=== PATIENT | male | born 1975 | race Caucasian/White ===

== ENCOUNTER 2016-11-04 09:42 | Inpatient (IN) | payer OTHER ==
[2016-11-04] VITALS (11 sets, daily range): BP systolic 83–127; BP diastolic 55–85
[~2016-11-04] VITALS: Ht 162.6 cm; Wt 63.6 kg
[2016-11-04 10:15] LABS: HEMATOCRIT 30.4 % (38.0-50.0); MCH 30.2 PG (29.0-34.0); MCHC 29.9 G/DL (30.0-36.0); MEAN PLAT.VOLUME 10.4 uM^3 (9.0-12.4); PLATELET COUNT 156 K/uL (156-360); RBC DIS.WIDTH-CV 13.2 % (11.8-14.6); RBC DIS.WIDTH-SD 49.1 % (39-53); RED BLOOD COUNT 3.01 M/uL (4.00-5.50); WHITE BLOOD COUNT 11.5 K/uL (4.1-10.2)
[2016-11-04 10:23] LABS: BASE EXCESS -10.8 mEq/L (-3 to +3); BICARBONATE 18.9 mEq/L (22-26); CARBOXY HGB 5.8 % (0-5); METHEMOGLOBIN 0.8 % (0-1.5); PCO2 58 mm Hg (35-45); PO2 104 mm Hg (80-100)
[2016-11-04 10:24] LABS: COMMENTS - BLOOD GASES A+C+; DEVICE 980; FI02 50 %; MECHANICAL RATE 16 resp/min; MODE AC; PEEP 5 CM/H20; SITE RR; TIDAL VOLUME 400 ML; TOTAL RESP RATE 16 resp/min; pH 7.12 (7.35-7.45)
[2016-11-04 10:24] LABS: CHLORIDE 125 mEq/L (99-109); POTASSIUM 2.5 mEq/L (3.7-5.4); SODIUM 148 mEq/L (136-147)
[2016-11-04 10:26] LABS: GLUCOSE 79 mg/dL (70-99)
[2016-11-04 10:27] LABS: ANION GAP 11 MEQ/L (2-14)
[2016-11-04 10:28] LABS: TOTAL BILIRUBIN 0.2 mg/dL (0.0-1.0)
[2016-11-04 10:29] LABS: SERUM ETHYL ALCOHOL < 10 mg/dL
[2016-11-04 10:30] LABS: GFR ESTIMATE (CALCULATED) > 59 mL/min/
[2016-11-04 10:31] LABS: ALKALINE PHOSPHATASE 55 IU/L (3-129)
[2016-11-04 10:32] LABS: UREA NITROGEN (BUN) 12 mg/dL (9-23)
[2016-11-04 10:33] LABS: SALICYLATE < 5.0 MG/DL (15-30)
[2016-11-04 10:34] LABS: TROP-I INTERPRETATION NEGATIVE; TROPONIN-I 0.07 ng/mL (0.0-0.30)
[2016-11-04 11:00] LABS: ANISOCYTOSIS 1+; BAND NEUTROPHILS 5.3 % (0-8.0); BASOPHILS 0.9 %; EOSINOPHIL ABS CT 0; INSTRUMENT ABS NEUTROPHIL CT 9.6 K/uL; LYMPHOCYTES 6.2 % (15.0-45.0); MACROCYTES 1+; METAMYELOCYTES 3.5 %; MICROCYTOSIS 1+; MYELOCYTES 1.8 %; PLAT.SUFFICIENCY ADEQUATE; POIKILOCYTOSIS 1+; SEG.NEUTROPHILS 81.4 % (46.0-76.0)
[2016-11-04 11:09] LABS: AMPHETAMINE NEGATIVE (500 ng/mL); BENZODIAZEPINES NEGATIVE (150 ng/mL); COCAINE NEGATIVE (150 ng/mL); METHADONE PRESUMPTIVE POSITIVE (200 ng/mL); METHAMPHETAMINE NEGATIVE (500 ng/mL); OPIATES (MORPHINE) NEGATIVE (100 ng/mL); PHENCYCLIDINE NEGATIVE (25 ng/mL); THC CANNABINOIDS PRESUMPTIVE POSITIVE (50 ng/mL); TRICYCLIC ANTIDEPRESSANTS NEGATIVE (300 ng/mL)
[2016-11-04 11:10] LABS: ADD MEDTOX COMMENT Y; BARBITURATES NEGATIVE (200 ng/mL); INTERNAL CONTROLS VALID? YES; OXYCODONE NEGATIVE (100 ng/mL); PROPOXYPHENE NEGATIVE (300 ng/mL)
[2016-11-04 14:24] LABS: BASE EXCESS -4.5 mEq/L (-3 to +3); BICARBONATE 21.7 mEq/L (22-26); CARBOXY HGB 2.5 % (0-5); COMMENTS - BLOOD GASES A+C+; DEVICE 980; PCO2 43 mm Hg (35-45); PO2 141 mm Hg (80-100); SITE RR; pH 7.31 (7.35-7.45)
[2016-11-04 14:25] LABS: FI02 50 %; MECHANICAL RATE 20 resp/min; MODE A/C; PEEP 5 CM/H20; TIDAL VOLUME 400 ML; TOTAL RESP RATE 20 resp/min
[2016-11-04 14:58] LABS: METH RESISTANT S AUREUS PCR NEGATIVE (NEGATIVE)
[2016-11-04 15:02] LABS: PROBE CHECK PASS; SPECIMEN PROCESSING CONTROL PASS
[2016-11-04 17:19] LABS: ALKALINE PHOSPHATASE 100 IU/L (3-129); ANION GAP 9 MEQ/L (2-14); CHLORIDE 106 MEQ/L (99-109); DIRECT BILIRUBIN 0.5 mg/dL (0.0-0.3); GFR ESTIMATE (CALCULATED) > 59 mL/min/; MAGNESIUM 1.5 mg/dl (1.3-2.7); SAMPLE HEMOLYSIS CHECK 0; SAMPLE ICTERIC CHECK 0; SAMPLE LIPEMIA CHECK 0; TOTAL BILIRUBIN 1.1 MG/DL (0.0-1.0); UREA NITROGEN (BUN) 20 mg/dL (9-23)
[2016-11-04 17:21] LABS: GLUCOSE 125 mg/dL (70-99); SODIUM 137 MEQ/L (136-147)
[2016-11-04 17:22] LABS: POTASSIUM 6.4 MEQ/L (3.7-5.4)
[2016-11-04 19:16] LABS: FERRITIN 2186 NG/ML (22-322)
[2016-11-04 19:24] LABS: IRON 75 MCG/DL (35-150)
[2016-11-04 22:03] LABS: ANION GAP 9 MEQ/L (2-14); CHLORIDE 104 MEQ/L (99-109); GFR ESTIMATE (CALCULATED) > 59 mL/min/; GLUCOSE 116 mg/dL (70-99); SAMPLE HEMOLYSIS CHECK 0; SAMPLE ICTERIC CHECK 0; SAMPLE LIPEMIA CHECK 0; SODIUM 138 MEQ/L (136-147); UREA NITROGEN (BUN) 19 mg/dL (9-23)
[2016-11-04 22:05] LABS: POTASSIUM 4.4 MEQ/L (3.7-5.4)
[2016-11-04 22:43] LABS: MAGNESIUM 2.4 mg/dl (1.3-2.7)
[2016-11-05] VITALS (20 sets, daily range): BP systolic 87–142; BP diastolic 43–90
[2016-11-05 02:04] LABS: ADD MIUA? YES; BILIRUBIN NEGATIVE; BLOOD MODERATE; COLOR YELLOW ((YELLOW)); GLUCOSE (STRIP) NEGATIVE; KETONES NEGATIVE; LEUKOCYTES NEGATIVE; NITRITE NEGATIVE; PROTEIN (STRIP) NEGATIVE; SPECIFIC GRAVITY 1.023 (1.000-1.030); UROBILINOGEN 0.2 MG/DL (0.2-1.0)
[2016-11-05 02:24] LABS: WHITE BLOOD CELLS 0-5 /HPF (0-5)
[2016-11-05 02:25] LABS: EPITHELIAL CELLS NONE SEEN /HPF; MUCUS NONE SEEN /LPF
[2016-11-05 02:26] LABS: AMORPHOUS URATES CRYSTALS 1+; BACTERIA 3+ /HPF; CASTS NONE SEEN /LPF; CRYSTALS PRESENT; URIC ACID CRYSTALS 3+ /HPF
[2016-11-05 04:51] LABS: EOSINOPHIL (%) 0.1 % (0-5); HEMATOCRIT 35.2 % (38.0-50.0); IMMATURE GRANULOCYTE (%) 0.5 % (0.0-0.7); INSTRUMENT ABS NEUTROPHIL CT 6.2 K/uL; LYMPHOCYTE COUNT 1.1 K/uL (1.0-2.8); MCH 29.9 PG (29.0-34.0); MCHC 33.5 G/DL (30.0-36.0); MEAN PLAT.VOLUME 10.7 uM^3 (9.0-12.4); MONOCYTE (%) 6.5 % (3-12); MONOCYTE COUNT 0.5 K/uL (0-0.8); NEUTROPHIL (%) 78.8 % (45-76); NEUTROPHIL COUNT 6.2 K/uL (1.8-6.4); PLATELET COUNT 169 K/uL (156-360); RBC DIS.WIDTH-CV 13.3 % (11.8-14.6); RBC DIS.WIDTH-SD 43.6 % (39-53)
[2016-11-05 04:52] LABS: MCV 89.3 FL (86-99); RED BLOOD COUNT 3.94 M/uL (4.00-5.50); WHITE BLOOD COUNT 7.9 K/uL (4.1-10.2)
[2016-11-05 05:05] LABS: SODIUM 138 mEq/L (136-147)
[2016-11-05 05:07] LABS: CHLORIDE 107 mEq/L (99-109); GLUCOSE 103 mg/dL (70-99)
[2016-11-05 05:09] LABS: ANION GAP 6 MEQ/L (2-14)
[2016-11-05 05:11] LABS: GFR ESTIMATE (CALCULATED) > 59 mL/min/
[2016-11-05 05:12] LABS: UREA NITROGEN (BUN) 18 mg/dL (9-23)
[2016-11-05 05:50] LABS: POINT-OF-CARE METER ID UU14174217
[2016-11-05 09:06] LABS: BASE EXCESS 4.2 mEq/L (-3 to +3); BICARBONATE 30.6 mEq/L (22-26); COMMENTS - BLOOD GASES NAC+; METHEMOGLOBIN 1.7 % (0-1.5); PCO2 53 mm Hg (35-45); PO2 171 mm Hg (80-100); SITE RR; pH 7.37 (7.35-7.45)
[2016-11-05 09:07] LABS: CONTINUOUS POS AIRWAY PRESSURE 5 cm H2O; DEVICE 980; FI02 50 %; MODE TUBE COMPENSATION; TOTAL RESP RATE 15 resp/min
[2016-11-06 04:16] VITALS: BP 132/76
[2016-11-06 08:37] VITALS: BP 139/82
[2016-11-06 13:12] VITALS: BP 139/82
[2016-11-06 13:24] LABS: HEMATOCRIT 38.1 % (38.0-50.0); MCH 30.7 PG (29.0-34.0); MCHC 33.3 G/DL (30.0-36.0); MEAN PLAT.VOLUME 10.6 uM^3 (9.0-12.4); PLATELET COUNT 164 K/uL (156-360); RBC DIS.WIDTH-CV 13.2 % (11.8-14.6); RBC DIS.WIDTH-SD 44.6 % (39-53); RED BLOOD COUNT 4.14 M/uL (4.00-5.50); WHITE BLOOD COUNT 6.2 K/uL (4.1-10.2)
[2016-11-06 14:00] LABS: ALKALINE PHOSPHATASE 85 IU/L (3-129); ANION GAP 7 MEQ/L (2-14); CHLORIDE 106 MEQ/L (99-109); DIRECT BILIRUBIN 0.1 mg/dL (0.0-0.3); GFR ESTIMATE (CALCULATED) > 59 mL/min/; GLUCOSE 92 mg/dL (70-99); MAGNESIUM 1.9 mg/dl (1.3-2.7); SAMPLE HEMOLYSIS CHECK 0; SAMPLE ICTERIC CHECK 0; SAMPLE LIPEMIA CHECK 0; SODIUM 141 MEQ/L (136-147); TOTAL BILIRUBIN 0.7 MG/DL (0.0-1.0); UREA NITROGEN (BUN) 13 mg/dL (9-23)
[2016-11-06 14:22] LABS: HPCA INDEX 0.12
[2016-11-06 14:23] LABS: ANTI-HEPATITIS A VIRUS (IGM) Nonreactive; HAV INDEX 0.14
[2016-11-06 14:24] LABS: ANTI-HEPATITIS B CORE (IGM) Nonreactive; HBC IgM INDEX 0.06
[2016-11-06 15:32] VITALS: BP 141/79
[2016-11-06 16:13] LABS: INTER. NORMALIZED RATIO 1.1; PTT 24.5 (25-32)
[2016-11-06 20:00] VITALS: BP 150/85
[2016-11-07] VITALS: BP 129/64
[2016-11-07 04:00] VITALS: BP 133/86
[2016-11-07 07:24] VITALS: BP 140/82
[2016-11-07 09:59] LABS: BASOPHIL COUNT 0.1 K/uL (0-0.1); EOSINOPHIL (%) 10.9 % (0-5); EOSINOPHIL COUNT 0.6 K/uL (0-0.3); HEMATOCRIT 40.4 % (38.0-50.0); IMMATURE GRANULOCYTE (%) 0.5 % (0.0-0.7); INSTRUMENT ABS NEUTROPHIL CT 3.8 K/uL; MCH 30.6 PG (29.0-34.0); MCHC 33.9 G/DL (30.0-36.0); MCV 90.4 FL (86-99); MEAN PLAT.VOLUME 10.6 uM^3 (9.0-12.4); MONOCYTE COUNT 0.4 K/uL (0-0.8); NEUTROPHIL (%) 65.2 % (45-76); NEUTROPHIL COUNT 3.8 K/uL (1.8-6.4); PLATELET COUNT 186 K/uL (156-360); RBC DIS.WIDTH-CV 12.9 % (11.8-14.6); RBC DIS.WIDTH-SD 42.6 % (39-53); RED BLOOD COUNT 4.47 M/uL (4.00-5.50); WHITE BLOOD COUNT 5.9 K/uL (4.1-10.2)
[2016-11-07 10:19] LABS: INTER. NORMALIZED RATIO 1.1
[2016-11-07 10:35] LABS: ALKALINE PHOSPHATASE 88 IU/L (3-129); ANION GAP 8 MEQ/L (2-14); CHLORIDE 104 MEQ/L (99-109); DIRECT BILIRUBIN 0.2 mg/dL (0.0-0.3); GFR ESTIMATE (CALCULATED) > 59 mL/min/; GLUCOSE 108 mg/dL (70-99); IRON 70 MCG/DL (35-150); MAGNESIUM 1.8 mg/dl (1.3-2.7); SAMPLE HEMOLYSIS CHECK 0; SAMPLE ICTERIC CHECK 0; SAMPLE LIPEMIA CHECK 0; SODIUM 142 MEQ/L (136-147); UREA NITROGEN (BUN) 12 mg/dL (9-23)
[2016-11-07] MEDS ORDERED: AUGMENTIN875 MG PO (11:29)
[2016-11-07 11:35] LABS: HBSG INDEX 0.18
== END 2016-11-07 12:30 | disposition home or self-care (01) | DRG 917 ==
LOC: EME → EDBD 09:42 → EME 09:57 → EDOF 12:11 → 4WEST 12:11 → 5SOUTH 11-05 22:26
PROVIDERS: Emergency Medicine; Internal Medicine; Internal Medicine Gastroenterology; Internal Medicine Nephrology; Nurse Practitioner Adult Health; Surgery Surgical Critical Care
DX: T40.3X1A Poisoning by methadone, accidental (unintentional), initial encounter (principal); J96.01 Acute respiratory failure with hypoxia; E87.2 Acidosis; J90 Pleural effusion, not elsewhere classified; J18.9 Pneumonia, unspecified organism; R41.82 Altered mental status, unspecified; R74.0 Nonspecific elevation of levels of transaminase and lactic acid dehydrogenase [LDH]; Y92.9 Unspecified place or not applicable; B17.9 Acute viral hepatitis, unspecified; F19.10 Other psychoactive substance abuse, uncomplicated; R79.89 Other specified abnormal findings of blood chemistry
CPT/HCPCS: 36600; 70450; 71010; 71250; 76705; 80048; 80048 91; 80053; 80076; 80306 90; 81003; 82140; 82330; 82607; 82728; 82746; 82803; 82948; 83540; 83735; 84100; 84466; 84484; 84999; 85025; 85027; 85610; 85730; 86705; 86709; 86803; 87070; 87086; 87205; 87340; 87641; 93005; 94002; 94003; 94640; 94640 76; 94644; 94799; 99202; 99281; 99285; G0480; J0330; J0610; J1815; J1940; J2310; J2543; J2704; J3475; J3480; J7030; J7050; J7120; S0028

== ENCOUNTER 2017-07-12 08:59 | Emergency (ER) | payer OTHER ==
[~2017-07-12] VITALS: Ht 162.6 cm; Wt 68.1 kg
[~2017-07-12 08:59] MED LIST: AUGMENTIN875 MG PO
[2017-07-12] MEDS ORDERED: PERCOCET 5/31 TABLET PO (11:00)
[2017-07-12 11:50] VITALS: BP 126/81
== END 2017-07-12 11:54 | disposition home or self-care (01) ==
LOC: EME 08:59
PROC: 2W3QX1Z Immobilization of Right Lower Leg using Splint (ICD-10-PCS; principal; 2017-07-12)
DX: S92.344A Nondisplaced fracture of fourth metatarsal bone, right foot, initial encounter for closed fracture (principal); S92.354A Nondisplaced fracture of fifth metatarsal bone, right foot, initial encounter for closed fracture; M25.551 Pain in right hip; V28.0XXA Motorcycle driver injured in noncollision transport accident in nontraffic accident, initial encounter
CPT/HCPCS: 73502; 73630; 99281; 99283

== ENCOUNTER 2017-09-20 12:11 | Emergency (ER) | payer OTHER ==
[~2017-09-20] VITALS: Ht 172.7 cm; Wt 63.0 kg
[~2017-09-20 12:11] MED LIST changes: +PERCOCET 5/31 TABLET PO
[2017-09-20 13:22] LABS: BASOPHIL (%) 0.3 % (0-1); BASOPHIL COUNT 0.1 K/uL (0-0.1); EOSINOPHIL (%) 0.5 % (0-5); EOSINOPHIL COUNT 0.1 K/uL (0-0.3); HEMATOCRIT 41.5 % (38.0-50.0); IMMATURE GRANULOCYTE (%) 0.6 % (0.0-0.7); LYMPHOCYTE COUNT 0.7 K/uL (1.0-2.8); MCHC 33.7 G/DL (30.0-36.0); MONOCYTE (%) 4.1 % (3-12); MONOCYTE COUNT 0.7 K/uL (0-0.8); NEUTROPHIL (%) 90.5 % (45-76); NEUTROPHIL COUNT 15.4 K/uL (1.8-6.4); PLATELET COUNT 228 K/uL (156-360); RBC DIS.WIDTH-CV 12.2 % (11.8-14.6); RBC DIS.WIDTH-SD 41.9 % (39-53); RED BLOOD COUNT 4.51 M/uL (4.00-5.50)
[2017-09-20 13:30] LABS: CHLORIDE 100 mEq/L (99-109); POTASSIUM 4.3 mEq/L (3.7-5.4); SODIUM 139 mEq/L (136-147)
[2017-09-20 13:32] LABS: GLUCOSE 121 mg/dL (70-99)
[2017-09-20 13:35] LABS: SERUM ETHYL ALCOHOL < 10 mg/dL
[2017-09-20 13:36] LABS: CREATININE 1.2 mg/dL (0.6-1.3); GFR ESTIMATE (CALCULATED) > 59 mL/min/ (58.99-99999)
[2017-09-20 13:37] LABS: UREA NITROGEN (BUN) 17 mg/dL (9-23)
[2017-09-20 13:41] LABS: TROP-I INTERPRETATION NEGATIVE; TROPONIN-I 0.02 ng/mL (0.0-0.30)
[2017-09-20 16:59] VITALS: BP 116/71
== END 2017-09-20 17:20 ==
LOC: EME 12:11
PROVIDERS: Emergency Medicine
DX: T40.601A Poisoning by unspecified narcotics, accidental (unintentional), initial encounter (principal); F11.188 Opioid abuse with other opioid-induced disorder; R06.89 Other abnormalities of breathing; F32.9 Major depressive disorder, single episode, unspecified; F17.200 Nicotine dependence, unspecified, uncomplicated
CPT/HCPCS: 71045; 80048; 81003; 84484; 85025; 93005; 99281; 99285; G0480; J2310; J2405